=== PATIENT | male | born 1995 | race Caucasian/White ===

== ENCOUNTER 2016-10-05 16:17 | Emergency (ER) | payer OTHER ==
[~2016-10-05] VITALS: Ht 175.3 cm; Wt 86.2 kg
[~2016-10-05 16:17] MED LIST: AUGMENTIN 875 M1 TAB PO
[2016-10-05 16:41] VITALS: BP 147/83
--- NOTE | 2016-10-05 17:35 | ED HAND/WRIST INJURY COMPLAINT ---
History of Present Illness General Chief Complaint: Laceration Procedure Stated Complaint: LAC TO L HAND (WORK COMP) Source: patient, old records Exam Limitations: no limitations Vital Signs & Intake/Output Vital Signs & Intake/Output Vital Signs Date Time Temp Pulse Resp B/P B/P Pulse O2 O2 Flow FiO2 Mean Ox Delivery Rate 10/05 1641 98.5 99 18 147/83 99 Room Air Allergies Coded Allergies: NO KNOWN ALLERGIES (04/21/14) Reconcile Medications AMOXICILLIN/POTASSIUM CLAV (Augmentin 875-125 Tablet) 875 MG/125 MG TAB 1 TAB PO BID DOF BITE Cephalexin (Keflex) 500 MG CAPSULE 1 CAP PO TID ppx Triage Note: PT TO ED FOR LAC TO L POINTER FINGER, BANDAGED P/T TRIAGE AND BLEEDING CONTROLLED. PT REPORTING HE IS UTD ON TETANUS SHOT. Triage Nurses Notes Reviewed? yes Occurred: just prior to arrival Duration: hour(s): (5), constant Timing: recent history Injury Environment: work Severity: mild Severity Numbers: 2 Pain/Injury Location: Left: 2nd finger. Context: laceration Method of Injury: laceration No Modifying Factors: none Associated Symptoms: none HPI: 21-year-old male presents to ER for evaluation status post sustaining laceration to his left second finger while at work earlier today. Patient states that he cut it on a metal wire. He denies any difficulty with range of motion. He denies any numbness or tingling there is no other injury. He clean the wound prior to arrival he is right-hand dominant his tetanus is up-to-date his declining anything for pain offered. No modifying factors or associated symptoms otherwise. (TORRI IRVIN) Past History Travel History Traveled to [place] past 21 day No Medical History Any Pertinent Medical History? none Neurological: NONE EENT: NONE Cardiovascular: NONE Respiratory: NONE Gastrointestinal: NONE Hepatic: NONE Renal: NONE Musculoskeletal: NONE Psychiatric: NONE Endocrine: NONE Blood Disorders: NONE Cancer(s): NONE Influenza Vaccine: 03/17/14 Tetanus Vaccine: 04/14/14 Surgical History Surgical History: none Psychosocial History What is your primary language Macedonian Tobacco Use: Never used ETOH Use: occasional use Illicit Drug Use: denies illicit drug use Family History Hx Contributory? No (TORRI IRVIN) Review of Systems Review of Systems Constitutional: Reports: see HPI. All Other Systems: Reviewed and Negative Comments Review of systems: See HPI, All other systems negative. Constitutional, no chills no fever, no malaise HEENT: No visual changes no sore throat no congestion, Cardiovascular: No chest pain , no palpitation Skin: no rashes, no change in skin Respiratory: No dyspnea no cough no sputum GI: No nausea no vomiting, no diarrhea, Muscle skeletal: No joint pain, no joint swelling, no back pain, no neck pain, Neurologic: No numbness no headache Psych: No stress Heme/endocrine: No bruising Immunology: No lymphadenopathy (TORRI IRVIN) Physical Exam Physical Exam General Appearance: well developed/nourished, no apparent distress, alert, awake Hand Left: lacerations, 2nd finger Hand Right: normal inspection, normal range of motion Comments: Well-developed well-nourished patient in no apparent distress. HEENT: Atraumatic, extraocular motion intact Neck: Supple, FROM Back: FROM Respiratory:No respiratory distress. Patient speaking in full complete sentences. Breath sounds clear to auscultation bilaterally: NO W/R/R Shoulder: Atraumatic/Stable. FROM . Elbow: Atraumatic/stable. FROM. No laxity Upper arm/Forearm: Atraumatic. Nontender. No edema, 5 out of 5 leak hunter strength noted to bilateral upper extremities there is a today Hand: There is a 2 cm superficial laceration noted to the left second finger overlying the PIP joint, the patient has full range of motion Atraumatic/stable. Skin intact. FROM no visualized or palpated foreign body no deep tendon injury noted Pulses: Normal/equal radial pulses bilaterally. Brisk cap refill Lower extremities: full range of motion Neuro: awake, alert, and oriented to person, place and time. There were no obvious focal neurologic abnormalities. Skin: Warm & dry;No appreciable rash on exposed skin Psych: Mood affect normal, normal memory normal judgment. Diagram Hands Front 1) Laceration as described above (TORRI IRVIN) Progress Differential Diagnosis: abscess, cellulitis, contusion, compartment syndrome, dislocation, fracture, sprain, tenosynovitis Plan of Care: Wound was thoroughly irrigated with normal saline Betadine peroxide the patient has full range of motion of finger and discussed with him the possibility of foreign body not seen on examination still exists or deep tendon injury, the patient does have full range motion of finger at this time the wound was thoroughly irrigated and cleaned and Dermabond was applied discussed with him return precautions signs of infection prescription for Keflex provided for prophylaxis he is up-to-date on his tetanus. I answered all his questions he feels comfortable plan (TORRI IRVIN) Departure Departure Time of Disposition: 1757 Disposition: HOME OR SELF CARE Condition: Stable Clinical Impression Primary Impression: Laceration Referrals: NOE TORRES,JOSH Nolasco (PCP/Family) Additional Instructions: Keflex as directed for prophylaxis keep area clean and covered. Return to ER follow-up with your doctor if he develop any signs of infection: Redness warm swelling discharge fever or chills. Departure Forms: Customer Survey General Discharge Information Prescriptions: Current Visit Scripts Cephalexin (Keflex) 1 CAP PO TID #15 CAP (TORRI IRVIN) PA/HAT IRONER Co-Sign Statement Statement: ED Attending supervision documentation- [] I saw and evaluated the patient. I have also reviewed all the pertinent lab results and diagnostic results. I agree with the findings and the plan of care as documented in the PA's/HAT IRONER's documentation. [X] I have reviewed the ED Record and agree with the PA's/HAT IRONER's documentation. [] Additions or exceptions (if any) to the PAs/HAT IRONER's note and plan are summarized below: [] (PERI TORRES,SHERI Nolasco) Procedures Laceration/Wound Repair Laceration/Wound Repair: Wound Location: L 2ND FINGER Wound's Depth, Shape: linear, superficial Wound Length (cm): 2 Wound Explored: clean, no foreign body removed, irrigated extensively Irrigated w/ Saline (ccs): 200 Betadine Prep? Yes Wound Repaired With: Dermabond Layer Closure? No Sterile Dressing Applied: Yes Tetanus Status: up to date (TORRI IRVIN)
[2016-10-05] MEDS ORDERED: KEFLEX500 M1 PO (18:08)
== END 2016-10-05 18:15 ==
LOC: ERH 16:17
DX: S61.211A Laceration without foreign body of left index finger without damage to nail, initial encounter (principal); W45.8XXA Other foreign body or object entering through skin, initial encounter; Y92.9 Unspecified place or not applicable; Y93.9 Activity, unspecified